=== PATIENT | female | born 1975 | race Caucasian/White ===

== ENCOUNTER 2022-02-20 13:23 | Emergency (ER) | payer OTHER ==
[~2022-02-20] VITALS: Ht 165.1 cm; Wt 109.0 kg
[2022-02-20] VITALS (11 sets, daily range): BP systolic 103–137; BP diastolic 64–82
[2022-02-20] MEDS ORDERED: PAROXETINE20 MG PO (14:27)
[2022-02-20] MEDS ORDERED: FAMOTIDINE20 M1 PO (14:27)
[2022-02-20] MEDS ORDERED: HYDROCO/APAP1 TA9 PO (15:38)
== END 2022-02-20 16:35 | disposition home or self-care (01) ==
LOC: ED 13:23
DX: M25.561 Pain in right knee (principal); M25.571 Pain in right ankle and joints of right foot; W01.0XXA Fall on same level from slipping, tripping and stumbling without subsequent striking against object, initial encounter; Y92.009 Unspecified place in unspecified non-institutional (private) residence as the place of occurrence of the external cause

== ENCOUNTER 2022-06-16 14:07 | Emergency (ER) | payer OTHER ==
[~2022-06-16] VITALS: Ht 165.1 cm; Wt 102.9 kg
[~2022-06-16 14:07] MED LIST: FAMOTIDINE20 M1 PO; HYDROCO/APAP1 TA9 PO; PAROXETINE20 MG PO
[2022-06-16 14:13] VITALS: BP 138/83
[2022-06-16 14:41] LABS: URINE BILIRUBIN - DIPSTICK NEGATIVE (NEGATIVE); URINE BLOOD DIPSTICK MODERATE (NEGATIVE); URINE COLOR YELLOW; URINE GLUCOSE - DIPSTICK NEGATIVE (NEGATIVE); URINE KETONE NEGATIVE (NEGATIVE); URINE LEUK ESTERASE NEGATIVE (NEGATIVE); URINE NITRITE - DIPSTICK NEGATIVE (Negative); URINE PH 5.5 (4.5-8.0); URINE PROTEIN - DIPSTICK NEGATIVE (NEG-TRACE); URINE SPECIFIC GRAVITY >=1.030; URINE UROBILINOGEN - DIPSTICK 0.2 E.U./dL (0.2)
[2022-06-16 14:49] LABS: URINE SQUAMOUS EPITHELIAL CELL FEW EPI/hpf (0-FEW)
[2022-06-16] MEDS ORDERED: CEPHALEXIN500 M1 PO (16:13)
[2022-06-16 16:31] VITALS: BP 138/83
== END 2022-06-16 16:54 | disposition home or self-care (01) ==
LOC: ED 14:07
PROVIDERS: Family Medicine
DX: R30.0 Dysuria (principal); R31.9 Hematuria, unspecified; Z87.440 Personal history of urinary (tract) infections

== ENCOUNTER 2023-12-05 19:20 | Emergency (ER) | payer OTHER ==
[~2023-12-05] VITALS: Ht 165.1 cm; Wt 75.0 kg
[~2023-12-05 19:20] MED LIST changes: +CEPHALEXIN500 M1 PO; +LORTAB 5/3255 MG PO; +METHOCARBAMOL500 MG PO
[2023-12-05 19:32] VITALS: BP 97/70
[2023-12-05] MEDS ORDERED: guaiFENesin-CODEINE 200-20 MG/10 ML UDC PO ONE (19:35)
[2023-12-05] MEDS ORDERED: IBUPROFEN 800 MG/TAB PO ONE (19:35)
[2023-12-05 20:00] VITALS: BP 154/96
[2023-12-05 20:00] LABS: BASO% 0.3 % (0-3); EOS% 4.4 % (0-8); HEMATOCRIT 36.8 % (37.0-47.0); HEMOGLOBIN 12.4 g/dl (12.0-16.0); IMMATURE GRANULOCYTES 0.1 % (0.0-5.0); LYMPH% 15.9 % (15-41); MEAN CELL VOLUME 90.2 fL CALC (80.0-100.0); MEAN CORPUSCULAR HGB 30.4 pG CALC (26.0-32.0); MEAN CORPUSCULAR HGB CONC 33.7 g/dL CAL (32.0-36.0); MONO% 7.8 % (2-13); NEUT# 5.03 thou/uL (2.00-7.15); NEUT% 71.5 % (42-76); RED BLOOD COUNT 4.08 mill/uL (4.20-5.60); RED CELL DISTRI WIDTH 11.8 % (11.5-15.5)
[2023-12-05 20:13] LABS: ALBUMIN 4.4 g/dL (3.2-5.0); BILIRUBIN, TOTAL 0.5 mg/dL (0.02-1.3); CREATININE 0.6 mg/dL (0.5-1.0); POTASSIUM 3.2 mmol/l (3.5-5.1); TOTAL PROTEIN 7.7 g/dL (6.3-8.2)
[2023-12-05 20:34] VITALS: BP 154/96
== END 2023-12-05 20:40 | disposition home or self-care (01) ==
LOC: ED 19:20
PROVIDERS: Family Medicine
DX: J06.9 Acute upper respiratory infection, unspecified (principal); L25.9 Unspecified contact dermatitis, unspecified cause; R73.9 Hyperglycemia, unspecified; F41.9 Anxiety disorder, unspecified; F32.A Depression, unspecified; Z20.822 Contact with and (suspected) exposure to COVID-19

== ENCOUNTER 2024-05-19 15:31 | Emergency (ER) | payer OTHER ==
[~2024-05-19] VITALS: Ht 165.1 cm; Wt 104.3 kg
[2024-05-19 15:41] VITALS: BP 153/70
[2024-05-19] MEDS ORDERED: METHOCARBAMOL 500 MG/TAB PO ONE (15:55)
[2024-05-19] MEDS ORDERED: traMADol HCL 50 MG/TAB PO ONE (15:55)
[2024-05-19] MEDS ORDERED: NAPROXEN 250 MG/TAB PO ONE (15:55)
[2024-05-19 16:04] LABS: URINE BILIRUBIN - DIPSTICK Negative (NEGATIVE); URINE BLOOD DIPSTICK Trace-intact (NEGATIVE); URINE GLUCOSE - DIPSTICK Negative (NEGATIVE); URINE KETONE Negative (NEGATIVE); URINE LEUK ESTERASE Negative (NEGATIVE); URINE NITRITE - DIPSTICK Negative (Negative); URINE PH 7.5 (4.5-8.0); URINE PROTEIN - DIPSTICK 30 mg/dL (NEG-TRACE); URINE UROBILINOGEN - DIPSTICK 0.2 E.U./dL (0.2)
[2024-05-19 16:05] LABS: URINE COLOR Yellow
[2024-05-19 16:10] LABS: URINE BACTERIA FEW hpf; URINE RBC 0-2 RBC/hpf (0-5); URINE SQUAMOUS EPITHELIAL CELL MODERATE EPI/hpf (0-FEW)
[2024-05-19 16:11] VITALS: BP 99/80
[2024-05-19] MEDS ORDERED: TRAMADOL HYDROC50 M1 PO (16:55)
[2024-05-19] MEDS ORDERED: NAPROXEN500 MG PO (16:55)
[2024-05-19 16:58] VITALS: BP 99/80
[2024-05-19] MEDS ORDERED: ZOFRAN4 MG/TAB PO (16:59)
== END 2024-05-19 17:03 | disposition home or self-care (01) ==
LOC: ED 15:31
PROVIDERS: Nurse Practitioner
DX: M54.50 Low back pain, unspecified (principal); F32.A Depression, unspecified; F41.9 Anxiety disorder, unspecified; W18.2XXA Fall in (into) shower or empty bathtub, initial encounter; Y93.E1 Activity, personal bathing and showering; Y92.002 Bathroom of unspecified non-institutional (private) residence as the place of occurrence of the external cause